=== PATIENT | female | born 1960 | race Caucasian/White ===

== ENCOUNTER → 2016-08-28 | Day surgery (SDC) | payer MEDICARE ==
[~2016-08-28] VITALS: Ht 172.7 cm; Wt 72.6 kg
[~2016-08-28] MED LIST: ALOE VERA JUICE PO; CIMZIA400 MG/2 M SQ; COQ1050 MG PO; FOLIC ACID1 MG PO; IBUPROFEN600 MG PO; METHOTREXATE2.5 MG PO; OMEPRAZOLE20 M1 PO; OMEPRAZOLE20 MG PO; PENICILLIN VK PO; PREDNISONE20 MG PO; RANITIDINE HCL75 MG PO; TUMERIC PO; VIT D3 PO; VITAMIN C 500500 MG PO; VITAMIN D32000 UNI1 PO; [UNRECOGNIZED DRUG - OTHER] PO
== END | disposition home or self-care (01) ==
LOC: OR 07:03
PROVIDERS: Internal Medicine Gastroenterology
PROC: 0DBE8ZZ Excision of Large Intestine, Via Natural or Artificial Opening Endoscopic (ICD-10-PCS; principal; 2016-08-28 14:30)
DX: Z12.11 Encounter for screening for malignant neoplasm of colon (principal); K63.3 Ulcer of intestine; K64.0 First degree hemorrhoids; K21.0 Gastro-esophageal reflux disease with esophagitis; K44.9 Diaphragmatic hernia without obstruction or gangrene; M19.90 Unspecified osteoarthritis, unspecified site; Z85.038 Personal history of other malignant neoplasm of large intestine; Z79.52 Long term (current) use of systemic steroids; Z79.899 Other long term (current) drug therapy; Z98.51 Tubal ligation status; Z90.49 Acquired absence of other specified parts of digestive tract; Z90.710 Acquired absence of both cervix and uterus
CPT/HCPCS: J7030

== ENCOUNTER → 2020-06-11 | Outpatient (CLI) | payer MEDICARE ==
[~2020-06-11] MED LIST changes: +CO Q-10100 MG PO; +EVENING PRIMR1000 MG PO; +OMEPRAZOLE40 MG PO; +SAW PALMETTO500 MG PO; +VITAMIN D3125 MCG PO; +XELJANZ10 MG PO
== END ==
LOC: KOH-I 12:43
DX: R06.02 Shortness of breath (principal)
CPT/HCPCS: 71046

== ENCOUNTER → 2020-07-03 | Day surgery (SDC) | payer MEDICARE | END | disposition home or self-care (01) | LOC: OR 07:19 | DX: K63.5 Polyp of colon (principal); K64.1 Second degree hemorrhoids; K21.9 Gastro-esophageal reflux disease without esophagitis; E66.3 Overweight; M06.9 Rheumatoid arthritis, unspecified; Z85.038 Personal history of other malignant neoplasm of large intestine; Z80.0 Family history of malignant neoplasm of digestive organs; Z83.3 Family history of diabetes mellitus; Z90.49 Acquired absence of other specified parts of digestive tract; Z68.27 Body mass index [BMI] 27.0-27.9, adult; Z79.899 Other long term (current) drug therapy; Z20.822 Contact with and (suspected) exposure to COVID-19 | CPT/HCPCS: J7040 ==